=== PATIENT | female | born 1965 | race African-American/Black ===

== ENCOUNTER 2023-11-26 08:45 | Emergency (ER) | payer MEDICARE ==
[~2023-11-26] VITALS: Ht 165.1 cm; Wt 75.0 kg
[2023-11-26 08:50] VITALS: O2SAT 98
[2023-11-26] MEDS: ACETAMINOPHEN 325MG TABLET PO ONE (09:00)
[2023-11-26] MEDS ORDERED: OXYC-100 PO (11:07)
[2023-11-26] MEDS: OXYCODONE HCL/ACETAMINOPHEN 5/325MG TABLET PO ONE (11:15)
[2023-11-26 11:22] VITALS: TEMP 97.9
[2023-11-26 13:22] VITALS: BP 128/80; PULSE 61; RESP 18
== END 2023-11-26 17:12 | disposition home or self-care (01) ==
LOC: ER 08:45
DX: S20.219A Contusion of unspecified front wall of thorax, initial encounter (principal); I10 Essential (primary) hypertension; W01.0XXA Fall on same level from slipping, tripping and stumbling without subsequent striking against object, initial encounter; Y93.89 Activity, other specified; Y92.89 Other specified places as the place of occurrence of the external cause; Y99.8 Other external cause status
CPT/HCPCS: 71101; 99283

== ENCOUNTER 2024-04-21 16:11 | Inpatient (IN) | payer OTHER ==
[~2024-04-21] VITALS: Ht 167.6 cm; Wt 61.2 kg
[~2024-04-21 16:11] MED LIST: OXYC-100 PO
[2024-04-21] MEDS: HYDROCODONE/ACETAMINOPHEN 5/325MG TABLET PO ONE (16:30)
[2024-04-21] MEDS: OXYCODONE HCL/ACETAMINOPHEN 5/325MG TABLET PO ONE (19:40)
[2024-04-21] MEDS ORDERED: CEPH500T MT (23:34)
[2024-04-21] MEDS ORDERED: SULF1TAB48 MT (23:34)
[2024-04-22 03:03] LABS: BASOPHILS % 0.7 % (0.0-2.0); EOSINOPHILS % 0.7 % (0.0-5.0); HEMOGLOBIN. 12.3 g/dL (12.0-16.0); LYMPHOCYTES % 21.9 % (20.0-50.0); MEAN CORPUSCULAR HGB CONC 33.3 g/dL (31.0-37.0); MEAN PLATELET VOLUME 8.7 fl (7.4-10.4); MONOCYTES % 7.3 % (2.0-8.0); NEUTROPHILS % 69.4 % (40.0-76.0); PLATELET 209 x1000/uL (130-400); RED BLOOD CELL COUNT 4.11 mill/uL (4.2-5.4); RED CELL DISTRIBUTION WIDTH 13.5 % (11.6-14.6); WHITE BLOOD COUNT 6.6 x1000/uL (4.5-11.0)
[2024-04-22 03:06] VITALS: BP 144/84; PULSE 77; RESP 19; TEMP 36.7516
[2024-04-22 03:11] LABS: CHLORIDE 108 mEq/L (98-107); POTASSIUM 3.9 mEq/L (3.5-5.1); SODIUM 143 mEq/L (136-145)
[2024-04-22 03:12] LABS: CARBON DIOXIDE 30 mEq/L (21-32)
[2024-04-22 03:17] LABS: CREATININE 0.5 mg/dL (0.6-1.0); GLUCOSE 92 mg/dL (70-105)
[2024-04-22 03:18] LABS: UREA NITROGEN BLOOD 9 mg/dL (9-23)
[2024-04-22 04:00] VITALS: BP 144/84; PULSE 77; RESP 19; TEMP 36.72516; O2SAT 98
[2024-04-22 08:00] VITALS: BP 144/76; PULSE 62; RESP 18; TEMP 36.33624; O2SAT 97
[2024-04-22] MEDS ORDERED: ACETAMINOPHEN 325MG TABLET PO PRN ×2 (08:45)
[2024-04-22] MEDS ORDERED: ONDANSETRON HCL 4MG/2ML INJ IV PRN (08:45)
[2024-04-22] MEDS ORDERED: IPRATROPIUM/ALBUTEROL 0.5-3(2.5)MG/3ML NEB HHN PRN (08:45)
[2024-04-22] MEDS ORDERED: HYDRALAZINE 20MG/ML VIAL IV PRN (08:45)
[2024-04-22] MEDS ORDERED: MAGNESIUM/ALUMINUM HYDROXIDE/SIMETHICONE 30ML UDC PO PRN (09:00)
[2024-04-22] MEDS: TRAMADOL 50MG TABLET PO NR (09:05)
[2024-04-22] MEDS: DEXT 5%/LACTATED RINGERS 1,000 ML IV SCH (09:40)
[2024-04-22] MEDS ORDERED: NALOXONE HCL 0.4MG/ML VIAL IV PRN (10:00)
[2024-04-22] MEDS: ENOXAPARIN 40MG/0.4ML SYR SUBCUT SCH (10:52)
[2024-04-22] MEDS: PANTOPRAZOLE 40MG DR TABLET PO SCH (10:53)
[2024-04-22] MEDS: GUAIFENESIN/DM 600MG/30MG ER TAB 12HR PO SCH (11:07)
[2024-04-22 12:00] VITALS: BP 133/61; PULSE 83; RESP 18; TEMP 36.44736; O2SAT 97
[2024-04-22 16:00] VITALS: BP 131/62; PULSE 64; RESP 19; TEMP 36.50292; O2SAT 100
[2024-04-22 20:00] VITALS: BP 147/94; PULSE 104; RESP 20; TEMP 36.28068; O2SAT 96
[2024-04-22 22:52] LABS: AMMONIA 58 uMol/L (<32)
[2024-04-22 22:53] LABS: CREATINE KINASE 34 IU/L (34-145); PHOSPHORUS 2.8 mg/dL (2.5-4.9)
[2024-04-23] VITALS: BP 135/70; PULSE 85; TEMP 36.50292
[2024-04-23 01:21] LABS: CREATINE KINASE 34 IU/L (34-145)
[2024-04-23] MEDS: TRAMADOL 50MG TABLET PO PRN (02:13)
[2024-04-23 04:00] VITALS: BP 159/82; PULSE 63; RESP 18; TEMP 36.22512; O2SAT 99
[2024-04-23 07:50] LABS: CHLORIDE 105 mEq/L (98-107); POTASSIUM 3.7 mEq/L (3.5-5.1); SODIUM 139 mEq/L (136-145)
[2024-04-23 07:51] LABS: CARBON DIOXIDE 30 mEq/L (21-32)
[2024-04-23 07:52] LABS: CALCIUM 9.3 mg/dL (8.7-10.4)
[2024-04-23 07:57] LABS: CREATININE 0.4 mg/dL (0.6-1.0); GLUCOSE 111 mg/dL (70-105); TRIGLYCERIDE 110 mg/dL (0-150)
[2024-04-23 07:58] LABS: ALANINE AMINOTRANSFERASE < 7 IU/L (10-49); ALBUMIN 3.9 g/dL (3.2-4.8); ASPARTATE AMINOTRANSFERASE 10 IU/L (<34); LDL CHOLESTEROL 106 mg/dL (5-100); T4 FREE 1.09 ng/dL (0.89-1.76); THYROID STIMULATING HORMONE 1.88 uIU/mL (0.55-4.78)
[2024-04-23 07:59] LABS: BILIRUBIN TOTAL 0.6 mg/dL (0.1-1.0); CHOLESTEROL 165 mg/dL (<200); HDL CHOLESTEROL 36 mg/dL (>65); PREALBUMIN 10.7 mg/dl (10.0-40.0); PROTEIN TOTAL 6.1 g/dL (6.0-8.3)
[2024-04-23 08:00] VITALS: BP 128/63; PULSE 85; RESP 18; TEMP 37.66968; O2SAT 100
[2024-04-23 08:58] LABS: UREA NITROGEN BLOOD < 5 mg/dL (9-23)
[2024-04-23 12:00] VITALS: BP 139/90; PULSE 68; RESP 20; TEMP 37.2252; O2SAT 100
[2024-04-23] MEDS: KETOROLAC 15MG/ML VIAL IV PRN (14:56)
[2024-04-23 16:00] VITALS: BP 152/53; PULSE 67; RESP 18; TEMP 37.44744; O2SAT 100
[2024-04-23] MEDS: NYSTATIN POWDER 15GM TOP SCH (17:48)
[2024-04-23 20:00] VITALS: BP 128/66; PULSE 66; RESP 18; TEMP 36.16956; O2SAT 95
[2024-04-24 04:00] VITALS: BP 121/77; PULSE 62; RESP 18; TEMP 36.22512; O2SAT 96
[2024-04-24 06:41] LABS: HEMATOCRIT 34.7 % (36.0-48.0); HEMOGLOBIN 11.6 g/dL (12.0-16.0); MEAN CORPUSCULAR HEMOGLOBIN 30.2 pg (28.0-32.0); MEAN CORPUSCULAR HGB CONC 33.3 g/dL (31.0-37.0); MEAN CORPUSCULAR VOLUME 90.7 fL (81.0-99.0); PLATELET 184 x1000/uL (130-400); RED BLOOD CELL COUNT 3.83 mill/uL (4.2-5.4); RED CELL DISTRIBUTION WIDTH 12.9 % (11.6-14.6); WHITE BLOOD COUNT 4.1 x1000/uL (4.5-11.0)
[2024-04-24 06:43] LABS: CARBON DIOXIDE 32 mEq/L (21-32); CHLORIDE 106 mEq/L (98-107); POTASSIUM 3.9 mEq/L (3.5-5.1); SODIUM 140 mEq/L (136-145)
[2024-04-24 06:44] LABS: CALCIUM 8.9 mg/dL (8.7-10.4)
[2024-04-24 06:48] LABS: CREATININE 0.4 mg/dL (0.6-1.0); GLUCOSE 92 mg/dL (70-105)
[2024-04-24 06:49] LABS: UREA NITROGEN BLOOD 8 mg/dL (9-23)
[2024-04-24 06:51] LABS: PHOSPHORUS 3.7 mg/dL (2.5-4.9)
[2024-04-24] MEDS: FAMOTIDINE 20MG TABLET PO SCH (09:02)
[2024-04-24 12:00] VITALS: BP 144/72; PULSE 82; RESP 18; TEMP 36.78072; O2SAT 100
[2024-04-24] MEDS: MAGNESIUM 2 G PREMIX 50 ML IV SCH (12:00)
[2024-04-24 16:12] VITALS: BP 137/53; PULSE 77; RESP 18; TEMP 36.78072; O2SAT 100
[2024-04-24 20:00] VITALS: BP 124/53; PULSE 63; RESP 18; TEMP 36.16956; O2SAT 95
[2024-04-25 04:00] VITALS: BP 167/97; PULSE 93; RESP 18; TEMP 36.16956; O2SAT 95
[2024-04-25] MEDS: HYDRALAZINE 10 MG in SODIUM CHLORIDE 0.9% 49.5 ML IV PRN (07:01)
[2024-04-25 07:42] LABS: CARBON DIOXIDE 30 mEq/L (21-32); CHLORIDE 105 mEq/L (98-107); POTASSIUM 4.2 mEq/L (3.5-5.1); SODIUM 138 mEq/L (136-145)
[2024-04-25 07:43] LABS: CALCIUM 8.9 mg/dL (8.7-10.4)
[2024-04-25 07:47] LABS: CREATININE 0.4 mg/dL (0.6-1.0)
[2024-04-25 07:48] LABS: GLUCOSE 104 mg/dL (70-105); UREA NITROGEN BLOOD 6 mg/dL (9-23)
[2024-04-25 07:50] LABS: AMMONIA 38 uMol/L (<32)
[2024-04-25 08:00] VITALS: BP 137/92; PULSE 59; RESP 20; TEMP 36.114; O2SAT 96
[2024-04-25 12:00] VITALS: BP 146/86; PULSE 102; RESP 19; TEMP 36.22512; O2SAT 97
[2024-04-25 16:00] VITALS: BP 123/80; PULSE 116; RESP 20; TEMP 36.22512; O2SAT 98
[2024-04-25 21:16] VITALS: PULSE 100; RESP 18; TEMP 37.00296; O2SAT 98
[2024-04-26 07:07] LABS: CARBON DIOXIDE 30 mEq/L (21-32); CHLORIDE 103 mEq/L (98-107); POTASSIUM 4.1 mEq/L (3.5-5.1); SODIUM 137 mEq/L (136-145)
[2024-04-26 07:08] LABS: CALCIUM 9.3 mg/dL (8.7-10.4)
[2024-04-26 07:13] LABS: CREATININE 0.5 mg/dL (0.6-1.0); GLUCOSE 103 mg/dL (70-105)
[2024-04-26 07:19] LABS: HEMOGLOBIN 12.1 g/dL (12.0-16.0); MEAN CORPUSCULAR HEMOGLOBIN 29.7 pg (28.0-32.0); MEAN CORPUSCULAR HGB CONC 32.6 g/dL (31.0-37.0); MEAN CORPUSCULAR VOLUME 91.1 fL (81.0-99.0); PLATELET 198 x1000/uL (130-400); RED BLOOD CELL COUNT 4.06 mill/uL (4.2-5.4); RED CELL DISTRIBUTION WIDTH 13.3 % (11.6-14.6); WHITE BLOOD COUNT 5.4 x1000/uL (4.5-11.0)
[2024-04-26 07:24] LABS: UREA NITROGEN BLOOD < 5 mg/dL (9-23)
[2024-04-26 08:00] VITALS: BP 148/87; PULSE 104; RESP 18; TEMP 36.61404; O2SAT 98
[2024-04-26 12:00] VITALS: BP 132/67; PULSE 68; RESP 18; TEMP 35.94732; O2SAT 100
[2024-04-26 15:46] LABS: CLARITY URINE CLOUDY (CLEAR); COLOR URINE YELLOW (YELLOW); GLUCOSE URINE NEGATIVE (NEGATIVE); KETONES URINE NEGATIVE (NEGATIVE); LEUKOCYTE ESTERASE URINE NEGATIVE (NEGATIVE); NITRITE URINE POSITIVE (NEGATIVE); OCCULT BLOOD URINE NEGATIVE (NEGATIVE); PH URINE 8.5 (4.5-8.0); PROTEIN URINE NEGATIVE (NEGATIVE); SPECIFIC GRAVITY URINE 1.011 (1.005-1.030)
[2024-04-26 16:00] VITALS: BP 145/68; PULSE 86; RESP 18; TEMP 36.44736; O2SAT 95
[2024-04-26 16:06] LABS: *AMPHETAMINES SCREEN URINE NEGATIVE (NEGATIVE); *BARBITURATES SCREEN URINE NEGATIVE (NEGATIVE); *BENZODIAZEPINES SCREEN URINE NEGATIVE (NEGATIVE)
[2024-04-26 16:07] LABS: *COCAINE SCREEN URINE NEGATIVE (NEGATIVE); CANNABINOID URINE SCREEN NEGATIVE (NEGATIVE); ECSTASY MDMA SCREEN URINE NEGATIVE (NEGATIVE); METHADONE URINE SCREEN NEGATIVE (NEGATIVE); OPIATES URINE SCREEN NEGATIVE (NEGATIVE); PHENCYCLIDINE URINE SCREEN NEGATIVE (NEGATIVE)
[2024-04-26 16:13] LABS: BACTERIA URINE 3+; RBC URINE 0-2 /hpf (0-2); SQUAMOUS EPITHELIAL CELL URINE 1+ /lpf (RARE/1+); WBC URINE 0-2 /hpf (0-2)
[2024-04-26] MEDS: CEFTRIAXONE 1GM/50ML 50 ML IV SCH (18:11)
[2024-04-26] MEDS: MAGNESIUM 2 G PREMIX 50 ML IV NR (18:11)
[2024-04-26] MEDS: DOCUSATE SODIUM 100MG CAPSULE PO PRN (18:53)
[2024-04-27 08:00] VITALS: BP 115/74; PULSE 101; RESP 18; TEMP 36.44736; O2SAT 98
[2024-04-27 12:00] VITALS: BP 114/65; PULSE 85; RESP 17; TEMP 36.6696; O2SAT 95
[2024-04-27 16:00] VITALS: BP 145/68; PULSE 97; RESP 18; TEMP 36.3918; O2SAT 99
[2024-04-27 20:00] VITALS: BP 106/60; PULSE 17; RESP 17; TEMP 36.72516; O2SAT 96
[2024-04-27] MEDS: TRAMADOL 50MG TABLET PO PRN (20:20)
[2024-04-27] MEDS: LACTULOSE 20G/30ML UDC PO NR (20:59)
[2024-04-28 04:00] VITALS: BP 128/62; PULSE 91; RESP 18; TEMP 37.11408; O2SAT 100
[2024-04-28 08:00] VITALS: BP 168/78; PULSE 74; RESP 19; TEMP 36.114; O2SAT 97
[2024-04-28] MEDS: MAGNESIUM 2 G PREMIX 50 ML IV NR (08:20)
[2024-04-28 16:00] VITALS: BP 121/73; PULSE 73; RESP 19; TEMP 36.33624; O2SAT 97
[2024-04-28 20:00] VITALS: BP 127/67; PULSE 98; RESP 18; TEMP 37.05852; O2SAT 100
[2024-04-29] VITALS: BP 147/67; PULSE 79; RESP 17; TEMP 36.89184; O2SAT 96
[2024-04-29 04:00] VITALS: BP 140/67; PULSE 75; RESP 18; TEMP 37.11408; O2SAT 98
[2024-04-29 08:00] VITALS: BP 142/58; PULSE 59; RESP 19; TEMP 36.3918; O2SAT 100
[2024-04-29] MEDS ORDERED: NALOXONE HCL 0.4MG/ML VIAL IV PRN (08:15)
[2024-04-29] MEDS: GUAIFENESIN-DM 200MG-20MG/10ML UDC PO SCH (08:52)
[2024-04-29 12:00] VITALS: BP 135/80; PULSE 76; RESP 19; TEMP 36.61404; O2SAT 100
[2024-04-29 14:05] VITALS: BP 135/80; PULSE 76; TEMP 97.9; O2SAT 100
== END 2024-04-29 16:10 | disposition home health service (06) | DRG 380 ==
LOC: EDBD 16:11 → ER 16:11 → 6WST 04-22 00:49 → EDBEDREQTM 04-22 01:09 → EDBEDREQ 04-22 01:09
PROVIDERS: ADMIT Hospitalist; ATTEND Hospitalist
PROC: 0JB90ZZ Excision of Buttock Subcutaneous Tissue and Fascia, Open Approach (ICD-10-PCS; principal; 2024-04-29)
DX: L89.323 Pressure ulcer of left buttock, stage 3 (principal); G92.8 Other toxic encephalopathy; E72.20 Disorder of urea cycle metabolism, unspecified; L97.829 Non-pressure chronic ulcer of other part of left lower leg with unspecified severity; N39.0 Urinary tract infection, site not specified; M17.12 Unilateral primary osteoarthritis, left knee; I10 Essential (primary) hypertension; M41.9 Scoliosis, unspecified; I25.10 Atherosclerotic heart disease of native coronary artery without angina pectoris; E83.42 Hypomagnesemia; E78.5 Hyperlipidemia, unspecified; Z74.01 Bed confinement status; Z99.3 Dependence on wheelchair; Z91.81 History of falling; W19.XXXA Unspecified fall, initial encounter; Y93.89 Activity, other specified; Y92.89 Other specified places as the place of occurrence of the external cause; Y99.8 Other external cause status
CPT/HCPCS: 11042; 36415; 72170; 73560; 73600; 80048; 80053; 80061; 80305; 81003; 82140; 82550; 83036; 83735; 84100; 84134; 84439; 84443; 85025; 85027; 93970; 97162; 97166; 99285; A6261; C1893; J0360; J0696; J1650; J1885; J3475; J7121